=== PATIENT | male | born 1990 | race Two or more races ===

== ENCOUNTER 2023-05-08 02:27 | Emergency (ER) | payer OTHER ==
[~2023-05-08] VITALS: Ht 180.3 cm; Wt 115.2 kg
[2023-05-08] MEDS ORDERED: ORASEP SPRAY30 ML MM (03:30)
[2023-05-08] MEDS ORDERED: CEPHALEXIN500 MG PO (03:30)
[2023-05-08] MEDS ORDERED: KETO10TA2 PO (03:30)
== END 2023-05-08 03:39 ==
LOC: ER 02:27
DX: J02.9 Acute pharyngitis, unspecified (principal)